=== PATIENT | male | born 1955 | race Asian ===

== ENCOUNTER 2016-12-19 13:51 | Outpatient (CLI) | payer OTHER ==
[2016-12-19] MEDS ORDERED: MOBIC15 MG PO (14:37)
[2016-12-19] MEDS ORDERED: ASPI325T40 PO (14:37)
[2016-12-19] MEDS ORDERED: HYDR5TAB9 PO (14:39)
[2016-12-19] MEDS ORDERED: TRAM50TA PO (14:40)
[2016-12-19] MEDS ORDERED: CLON0.1T16 PO (14:41)
[2016-12-19] MEDS ORDERED: CITALOPRAM20 MG PO (14:41)
[2016-12-19] MEDS ORDERED: RISP0.5T2 PO (14:42)
[2016-12-19] MEDS ORDERED: FURO20TA67 PO (14:42)
[2016-12-19] MEDS ORDERED: DOCU100C10 PO (14:43)
[2016-12-19] MEDS ORDERED: HYDR25TA60 PO (14:43)
== END 2016-12-19 14:04 | disposition short-term general hospital (02) ==
LOC: AMB 13:51
DX: F03.91 Unspecified dementia, unspecified severity, with behavioral disturbance (principal)
CPT/HCPCS: A0425; A0428